=== PATIENT | female | born 1985 ===

== ENCOUNTER 2021-07-25 10:23 | Outpatient (CLI) | payer OTHER | END 2021-07-25 12:06 | disposition home or self-care (01) | LOC: PRENATAL 10:23 | PROVIDERS: ATTEND Obstetrics & Gynecology Maternal & Fetal Medicine | DX: O36.80X0 Pregnancy with inconclusive fetal viability, not applicable or unspecified (principal); O26.859 Spotting complicating pregnancy, unspecified trimester; O09.529 Supervision of elderly multigravida, unspecified trimester ==

== ENCOUNTER 2021-08-08 09:19 | Outpatient (CLI) | payer OTHER | END 2021-08-08 10:45 | disposition home or self-care (01) | LOC: PRENATAL 09:19 | PROVIDERS: ATTEND Obstetrics & Gynecology Maternal & Fetal Medicine | DX: O99.891 Other specified diseases and conditions complicating pregnancy (principal); O26.899 Other specified pregnancy related conditions, unspecified trimester; O00.90 Unspecified ectopic pregnancy without intrauterine pregnancy; O09.529 Supervision of elderly multigravida, unspecified trimester ==

== ENCOUNTER 2021-12-23 08:28 | Outpatient (CLI) | payer OTHER | END 2021-12-23 09:35 | disposition home or self-care (01) | LOC: PRENATAL 08:28 | PROVIDERS: ATTEND Obstetrics & Gynecology Maternal & Fetal Medicine | DX: O26.849 Uterine size-date discrepancy, unspecified trimester (principal); O09.529 Supervision of elderly multigravida, unspecified trimester; Z3A.28 28 weeks gestation of pregnancy ==

== ENCOUNTER 2022-01-15 11:20 | Outpatient (CLI) | payer OTHER | END 2022-01-15 13:25 | disposition home or self-care (01) | LOC: PRENATAL 11:20 | PROVIDERS: ATTEND Obstetrics & Gynecology Maternal & Fetal Medicine | DX: O26.849 Uterine size-date discrepancy, unspecified trimester (principal); O36.8199 Decreased fetal movements, unspecified trimester, other fetus; Z3A.31 31 weeks gestation of pregnancy ==